=== PATIENT | female | born 1955 | race Asian ===

== ENCOUNTER 2024-04-23 07:50 | Day surgery (SDC) | payer MEDICARE, OTHER ==
[~2024-04-23] VITALS: Ht 309.9 cm; Wt 60.8 kg
[~2024-04-23 07:50] MED LIST: ACETAMINOPHEN325 M1 PO; IBLOOD GLUCOSE TEST STRIP 1 EA TEST VI PRN; INDAPAMIDE1.25 MG PO; IRBESARTAN300 MG PO; JANUMET 50-5001 EACH PO; JANUMET XR 50-1 EAC1 PO; LACTATED RINGER'S 1,000 ML IV SCH; LEVEMIR FL100 UNIT/2 SQ; LEVEMIR100 UNIT/1 SUB-Q; LEVOTHYROXINE25 MC1 PO; LIDOCAINE HCL 1% 5 ML SDV INJ ONE; LIPITOR40 MG PO; LOSARTAN-HCTZ1 EAC1 PO; MAGNESIUM400 M1 PO; METFORMIN HCL500 M2 PO; METOPROLOL SUCC25 MG PO; MIDAZOLAM HCL 5 MG/5 ML VIAL IV PRN; NORVASC10 MG PO; OMEGA 3 1,0001 EACH PO; TRESIBA100 UNIT/1 SQ; TURMERIC500 M2 PO; VISION FORMULA1 EAC1 PO; VITAMIN B12500 MCG PO; VITAMIN C500 M5 PO; VITAMIN D3250 MC2 PO; VITAMIN E400 UNI1 PO; fentaNYL citrate 100 MCG/2 ML VIAL IV PRN
[2024-04-23] MEDS ORDERED: fentaNYL citrate 100 MCG/2 ML VIAL ONE (08:41)
[2024-04-23] MEDS ORDERED: MIDAZOLAM HCL 5 MG/5 ML VIAL ONE (08:42)
[2024-04-23 08:52] VITALS: BP 150/70
--- NOTE | 2024-04-23 09:40 | NUR ---
04/23/24 0940 Rima Lovett 0932- PT ARRIVES TO PACU AWAKE AND TALKING. PT REPORTS NO PAIN OR NAUSEA. RESP EVEN AND UNLABORED. OXYGEN SAT HIGH 90'S TO 100% ON RA. 0936- PT SAT UP SLIGHTLY IN BED. PT REPORTS NO DIZZINESS OR NAUSEA WITH THIS. 0940- PT PASSING LARGE AMOUNTS OF FLATUS. PT STATES THIS HELPS WITH ABD CRAMPING. PT ENCOURAGED TO CONTINUE TO PASS FLATUS TO ALLEVIATE ABD CRAMPING.
[2024-04-23 10:00] VITALS: BP 153/85
--- NOTE | 2024-04-23 10:47 | OR ---
[facility] [address] [place], [place] [address] Signed DATE OF OPERATION: 04/23/2024 SURGEON: Horace Gifford MD PREOPERATIVE DIAGNOSES: 1. Cologuard positive. 2. External hemorrhoids. POSTOPERATIVE DIAGNOSES: 1. 4 mm sessile polyp at 20 cm in sigmoid colon. 2. 4 mm inflamed polypoid lesion at 50 cm in left colon. 3. Minimal to moderate internal and external hemorrhoids. PROCEDURE: Colonoscopy with hot biopsy. ESTIMATED BLOOD LOSS: None. INDICATIONS: Kendra Burrows is a 68-year-old Irish lady, who was asked to see me for followup colonoscopy. She always comes with her daughter. She had a positive Cologuard recently. She has no lower GI complaints. No family history of colon cancer or polyps. I helped with a colonoscopy in 2016 at the age of 61. She had external hemorrhoids at that time. She did very well with 5 mg of Versed and 100 mcg of fentanyl. She was on the 10 year plan. In the office, I gave them a pamphlet on colonoscopy. They understand the nature of the test. There is risk including, but not limited to gas bloating, crampy abdominal pain, bleeding, perforation requiring surgery, and missed diagnosis. We had reviewed the written instructions for the bowel prep line by line. It is the same prep she took previously. We also went through a rather long list of medications. She also understands the need for IV conscious sedation. Generally, her daughter takes her home after procedures. She had expressed understanding and wished to proceed. PROCEDURE IN DETAIL: Kendra Burrows was taken into our endoscopy suite and placed in the left lateral decubitus position. She was given 2 mg Versed and 100 mcg of fentanyl to cover the case. A digital rectal exam was performed and indeed she has small to moderate sized circumferential external hemorrhoids. She had good sphincter tone. There were no masses. The adult colonoscope was introduced and advanced all the way around into the cecum under direct visualization of camera. It took a little abdominal compression to Electronically Signed By: HORACE GIFFORD MD 04/23/24 1047 PATIENT NAME: KENDRA HOOKS OPERATIVE REPORT DATE OF : 55 REPORT #: [id number] PHYSICIAN: HORACE GIFFORD MD PCP: BONIFACIO OROZCO MD REPORT IS CONFIDENTIAL AND NOT TO BE RELEASED WITHOUT AUTHORIZATION [facility] [address], [place] [address] Signed get the scope up to the sigmoid colon and into the cecum itself. Her prep was quite excellent. We could easily see the appendiceal orifice and ileocecal valve. The scope was slowly withdrawn. The two polypoid lesions mentioned above were easily removed with the help of hot biopsy forceps. There was no diverticulosis. Once in the rectum, the scope was retroflexed. She does have minimal to moderate internal hemorrhoid tissue as well. After this, the gas was suctioned out, colonoscope removed. Kendra Burrows tolerated the procedure quite well. RECOMMENDATIONS: I will see Kendra Burrows in my office in 1-2 weeks to review her results. It looks like her positive Cologuard test came from her internal and external hemorrhoids. Horace Gifford MD ALB/MODL /[id number] cc: MD Horace Raines MD Copies: BONIFACIO OROZCO MD, ANDREW L MD ~ Electronically Signed By: HORACE GIFFORD MD 04/23/24 1047 PATIENT NAME: KENDRA HOOKS OPERATIVE REPORT DATE OF : 55 REPORT #: [id number] PHYSICIAN: HORACE GIFFORD MD PCP: BONIFACIO OROZCO MD REPORT IS CONFIDENTIAL AND NOT TO BE RELEASED WITHOUT AUTHORIZATION
--- NOTE | 2024-04-25 17:13 | PATH ---
[facility] [address] [facility] [place], [place] [address] Signed SPECIMEN(S): A SIGMOID POLYP, 20 CM SPECIMEN(S): B DESCENDING POLYP, 50 CM SPECIMEN SOURCE: A. SIGMOID POLYP, 20 CM B. DESCENDING POLYP, 50 CM CLINICAL HISTORY: History of positive Cologuard, internal/external hemorrhoids FINAL PATHOLOGIC DIAGNOSIS: A. Sigmoid polyp at 20 cm, biopsy: - Hyperplastic polyp. B. Descending polyp at 50 cm, biopsy: - Hyperplastic polyp. AMB MICROSCOPIC EXAMINATION: Histologic sections of all submitted blocks are examined by light microscopy. These findings, together with the gross examination, support the pathologic diagnosis. GROSS DESCRIPTION: A. The specimen, labeled and designated "Cathy, sigmoid polyp, 20 cm," is received in formalin and consists of one quezada soft tissue fragment, 0.4 cm. Entirely submitted in (A1). B. The specimen, labeled and designated "Cathy, descending polyp, 50 cm," is received in formalin and consists of one quezada soft tissue fragment, 0.3 cm. Entirely submitted in (B1). VB (under the direct supervision of a pathologist) The Gross Description was prepared using a voice recognition system. The report was reviewed for accuracy; however, sound-alike word errors, addition and/or deletions may occur. If there is any question about this report, please contact Client Services. ADDITIONAL NOTES: Immunohistochemical and/or in situ hybridization studies if performed in this case included appropriate positive controls that reacted as expected. This test was developed and its performance characteristics determined by [facility]. It has not been cleared or approved by the U.S. Food and Drug Administration. The FDA has determined that PATIENT NAME: KENDRA HOOKS PATHOLOGY DATE OF : 55 REPORT #: [id number] PHYSICIAN: NEGAR CROWDER PCP: BONIFACIO OROZCO MD REPORT IS CONFIDENTIAL AND NOT TO BE RELEASED WITHOUT AUTHORIZATION [facility] [address] [place], [place] [address] Signed such clearance or approval is not necessary. This test is used for clinical purposes. It should not be regarded as investigational or for research. [facility] is certified under the Clinical Laboratory Improvement Amendments of 1988 (CLIA) as qualified to perform high complexity clinical laboratory testing. PERFORMING LABORATORY: Technical component was performed by [facility], [address] [place] [address] (CLIA# [id number]). Professional interpretation was performed by [facility] Pathology - [facility] [address] [place] [id number] Diagnostician: Celestina Hays MD Pathologist Electronically Signed 04/25/2024 Copies: ~ PATIENT NAME: KENDRA HOOKS PATHOLOGY DATE OF : 55 REPORT #: [id number] PHYSICIAN: NEGAR PATHOLOGY PCP: BONIFACIO OROZCO MD REPORT IS CONFIDENTIAL AND NOT TO BE RELEASED WITHOUT AUTHORIZATION
== END 2024-04-23 10:08 | disposition home or self-care (01) ==
LOC: DS 07:50
PROVIDERS: ATTEND Colon & Rectal Surgery
PROC: 0DBN8ZX Excision of Sigmoid Colon, Via Natural or Artificial Opening Endoscopic, Diagnostic (ICD-10-PCS; 2024-04-23)
PROC: 0DBG8ZX Excision of Left Large Intestine, Via Natural or Artificial Opening Endoscopic, Diagnostic (ICD-10-PCS; principal; 2024-04-23 09:00)
DX: R19.5 Other fecal abnormalities (principal); K64.4 Residual hemorrhoidal skin tags; K63.5 Polyp of colon; K64.8 Other hemorrhoids; E11.9 Type 2 diabetes mellitus without complications; I10 Essential (primary) hypertension; E03.9 Hypothyroidism, unspecified; I25.10 Atherosclerotic heart disease of native coronary artery without angina pectoris; F41.9 Anxiety disorder, unspecified; I49.9 Cardiac arrhythmia, unspecified
CPT/HCPCS: 88305; 99153; G0500; J2250; J3010; J7121